=== PATIENT | female | born 1935 | race Caucasian/White ===

== ENCOUNTER 2020-02-07 09:18 | Outpatient (CLI) | payer MEDICARE, BC ==
--- NOTE | 2020-02-14 09:21 | MMO ---
Bilateral MAMMO Bilat Screen DDI+DUNIA. CLINICAL HISTORY: Patient is 84 years old and is seen for screening. The patient has no family history of breast cancer. 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 VIEWS: The views performed were: right craniocaudal with tomosynthesis and right mediolateral oblique with tomosynthesis. FILMS COMPARED: The present examination has been compared to prior imaging studies performed at [facility] on 05/10/2015, 06/09/2016 and 08/19/2018. This study has been interpreted with the assistance of computer-aided detection. MAMMOGRAM FINDINGS: There are scattered fibroglandular densities. Finding 1: There are stable post operative changes seen in the right breast. Finding 2: There is a focal asymmetry seen in the right breast at 12 o'clock. IMPRESSION: FINDING 2: FOCAL ASYMMETRY IN THE RIGHT BREAST REQUIRES ADDITIONAL EVALUATION. ADDITIONAL IMAGING. ULTRASOUND MAY ALSO PROVE USEFUL AT RECALL. THE RESULTS OF THIS EXAM WERE SENT TO THE PATIENT. ACR BI-RADS Category 0 - Incomplete: Need additional imaging evaluation. [facility] will notify the patient of the need for additional imaging services. MAMMOGRAPHY NOTE: 1. A negative mammogram report should not delay a biopsy if a dominant of clinically suspicious mass is present. 2. Approximately 10% to 15% of breast cancers are not detected by mammography. 3. Adenosis and dense breasts may obscure an underlying neoplasm. Reported by: MARIO MOLINA MD Electonically Signed: [id number]
== END 2020-02-07 09:19 | disposition home or self-care (01) ==
LOC: BICMAMMO 09:18
PROVIDERS: ATTEND Family Medicine
DX: Z12.31 Encounter for screening mammogram for malignant neoplasm of breast (principal); Z90.12 Acquired absence of left breast and nipple; Z98.82 Breast implant status; N64.89 Other specified disorders of breast
CPT/HCPCS: 77063; 77067

== ENCOUNTER 2020-02-20 09:51 | Outpatient (CLI) | payer MEDICARE, BC ==
--- NOTE | 2020-02-20 10:45 | MMO ---
Right Breast MAMMO Unilat Diag DDI RT+DUNIA. CLINICAL HISTORY: Patient is 84 years old and is seen for additional evaluation requested from prior study. The patient has no family history of breast cancer. 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 VIEWS: The views performed were: right craniocaudal spot compression with tomosynthesis; right mediolateral oblique spot compression with tomosynthesis; and right mediolateral with tomosynthesis. FILMS COMPARED: The present examination has been compared to prior imaging studies performed at [facility] on 02/07/2020 and 02/20/2020, and at [facility] on 06/09/2016 and 08/19/2018. This study has been interpreted with the assistance of computer-aided detection. MAMMOGRAM FINDINGS: There are scattered fibroglandular densities. Additional views were performed. The density at 12:00 appears less prominent but US shows a solid mass at 11:00 and should be biopsied. IMPRESSION: FINDING IN THE RIGHT BREAST IS SUSPICIOUS. AN ULTRASOUND-GUIDED BREAST BIOPSY IS RECOMMENDED. THE RESULTS OF THIS EXAM WERE SENT TO THE PATIENT. ACR BI-RADS Category 4 - Suspicious abnormality - biopsy should be considered D/W pt in person @ 10:40 am MAMMOGRAPHY NOTE: 1. A negative mammogram report should not delay a biopsy if a dominant of clinically suspicious mass is present. 2. Approximately 10% to 15% of breast cancers are not detected by mammography. 3. Adenosis and dense breasts may obscure an underlying neoplasm. Reported by: GLADIS ORTEGA MD Electonically Signed: [id number]
--- NOTE | 2020-02-20 12:38 | ULT ---
RIGHT BREAST ULTRASOUND: HISTORY: Abnormal mammogram. FINDINGS: Correlation is made with the mammograms of 02/07/2020 and today. FINDINGS: Sonographic evaluation of the region of concern at the 11 and 12 o'clock positions of the right breas t demonstrates solid-appearing nonshadowing mass at the 11 o'clock position, 1 cm from the nipple heather suring 8 x 8 x 4 mm. A few small cysts are seen at the 11 and 12 o'clock positions. These measure up to 4 mm. IMPRESSION: BIRADS category 4 - suspicious abnormality. Ultrasound-guided biopsy is recommended. Discussed in person with the patient at 11:40 a.m. BRANDI SOLORZANO
== END 2020-02-20 09:52 | disposition home or self-care (01) ==
LOC: BICMAMMO 09:51
PROVIDERS: ATTEND Family Medicine
DX: R92.2 Inconclusive mammogram (principal)
CPT/HCPCS: 76642; 77065; G0279

== ENCOUNTER → 2020-03-01 | Day surgery (SDC) | payer MEDICARE, BC ==
--- NOTE | 2020-03-01 14:03 | MMO ---
FILMS COMPARED: The present examination has been compared to prior imaging studies performed at [facility] on 02/07/2020 and 02/20/2020, and at [facility] on 08/19/2018. MAMMOGRAM FINDINGS: There is a new biopsy clip seen in the anterior upper-outer region of the right breast. IMPRESSION: NEW BIOPSY CLIP IN THE RIGHT BREAST IS CONFIRMED UTILIZING POST PROCEDURE MAMMOGRAM. Reported by: GLADIS ORTEGA MD Electonically Signed: [id number]
--- NOTE | 2020-03-01 14:50 | ULT ---
Exam: Right breast biopsy with ultrasound guidance COMPARISON: 02/20/2020 HISTORY: Right breast mass. Past medical history of left cancer. Right breast reduction. FINDINGS: Successful ultrasound-guided biopsy. A total of 3, 14-gauge core biopsy samples were obtain ed. Lesional tissue was placed directly in formalin. Postbiopsy clip was placed. Patient tolerated the procedure well. No immediate or postprocedure complications TECHNIQUE: Consent obtained to perform a left breast biopsy. Left breast was evaluated. The 11:00 les ion was identified. Skin was prepped and draped in a sterile fashion. 1% lidocaine, buffered with sodium bicarbonate was used for local anesthesia. Under ultrasound guidance, 14-gauge core biopsy nee dle was advanced adjacent to the lesion. A total of 3 biopsies were obtained. Samples were placed directly in formalin. Post biopsy clip was placed. Patient tolerated the procedure well. No immediate or postprocedural complications. Post biopsy mammogram was performed. Clip position appears to be in the appropriate region. IMPRESSION: Successful right breast ultrasound-guided biopsy. Final pathologic diagnosis pending.
== END ==
LOC: BICULT 12:42
PROVIDERS: ATTEND Family Medicine
PROC: 0H9T3ZX Drainage of Right Breast, Percutaneous Approach, Diagnostic (ICD-10-PCS; principal; 2020-03-01)
DX: D24.1 Benign neoplasm of right breast (principal); N62 Hypertrophy of breast; N60.31 Fibrosclerosis of right breast; Z85.3 Personal history of malignant neoplasm of breast; Z90.11 Acquired absence of right breast and nipple
CPT/HCPCS: 19083; 88305